=== PATIENT | female | born 1990 | race Caucasian/White ===

== ENCOUNTER 2017-10-22 12:01 | Inpatient (IN) | payer BC ==
[~2017-10-22] VITALS: Ht 167.6 cm; Wt 87.3 kg
[2017-12-01] VITALS (16 sets, daily range): BP systolic 92–117; BP diastolic 43–74; PULSE 57–97; TEMP 97.4–98.1
[2017-12-01 06:03] LABS: BASO % 0.3 % (0.0-2.0); EOS # 0.1 (0.0-0.7); EOS % 1.2 % (0-4.0); GRAN # 4.7 (1.4-6.5); GRAN % 62.6 % (42.2-75.2); LYMPH # 2.3 (1.2-3.4); LYMPH % 30.4 % (20.0-51.0); MEAN CELL VOLUME 84 fl (80.0-100.0); MEAN CORPUSCULAR HGB CONC 32 g/dl (33.0-37.0); MEAN PLATELET VOLUME 11.3 fl (7.4-10.4); MONO # 0.4 (0.1-0.6); MONO % 5.2 % (1.7-9.3); PLATELET COUNT 358 K/mm3 (130-400); RED BLOOD COUNT 4.05 M/mm3 (4.10-5.30); REDCELL DISTRIBUTION WIDTH-CV 13.2 % (11.5-14.5)
[2017-12-01 06:05] LABS: HEMATOCRIT 34.2 % (37.0-47.0); HEMOGLOBIN 10.9 g/dl (12.5-16.0); MEAN CORPUSCULAR HEMOGLOBIN 27 pg (27.0-31.0)
[2017-12-01] MEDS ORDERED: PRENATAL MVI (06:28)
[2017-12-02 00:20] VITALS: BP 99/57; PULSE 70; TEMP 97.8
[2017-12-02 05:40] VITALS: BP 92/54; PULSE 59; TEMP 97.7
[2017-12-02 08:00] VITALS: BP 104/62; PULSE 70; TEMP 99
[2017-12-02 16:15] VITALS: BP 96/62; PULSE 79; TEMP 98.5
[2017-12-02 20:40] VITALS: BP 94/60; PULSE 77; TEMP 98.5
[2017-12-03 08:08] VITALS: BP 105/62; PULSE 85; TEMP 98.2
[2017-12-03] MEDS ORDERED: IBU600 MG PO (10:46)
[2017-12-03] MEDS ORDERED: PERCOCET 325 MG1 TA2 PO (10:47)
== END 2017-12-03 11:50 | disposition home or self-care (01) | DRG 766 ==
LOC: OB 12-01 05:15 → LDR 12-01 15:32 → OB 12-03 11:50 → LDR 12-07 12:00
PROVIDERS: Obstetrics & Gynecology
PROC: 10D00Z1 Extraction of Products of Conception, Low, Open Approach (ICD-10-PCS; principal; 2017-12-01)
PROC: 0UT70ZZ Resection of Bilateral Fallopian Tubes, Open Approach (ICD-10-PCS; 2017-12-01)
DX: O34.211 Maternal care for low transverse scar from previous cesarean delivery (principal); N85.8 Other specified noninflammatory disorders of uterus; Z3A.39 39 weeks gestation of pregnancy; Z37.0 Single live birth
CPT/HCPCS: J0690; J1885; J2270; J2370; J2405; J2590; J2765; J7120